=== PATIENT | male | born 1950 | race Caucasian/White ===

== ENCOUNTER 2025-03-12 09:42 | Inpatient (IN) | payer MEDICARE, BC, SELFPAY ==
[2025-03-12 09:06] LABS: Hematocrit 31.1 % (39.0-52.0); Hemoglobin 9.7 g/dL (13.0-18.0); Mean Corp Hgb Conc. 31.2 g/dL (33.0-37.0); Mean Corpuscular Volume 86.1 fL (80.0-94.0); Nucleated Red Blood Cells % 0 % (-); Platelet Count 255 10^3/uL (130-400); Red Cell Dist. Width 14.1 % (11.5-14.5)
--- NOTE | 2025-03-12 09:41 | HPS.HSE ---
Addendum entered and electronically signed by Gretel Youssef MD 03/12/25 13:39:
Reviewed labs, pt has Hgb 9.7, Cr 1.9, Pro BNP 13,000, d-dimer 4.07. Requested records for [facility] summary, BMP, CBC to compare. Given elevated Cr, can order V/Q. Attempted to call for more infor but she did not answer phone and no VM.
Original Note:
Family Physician
-
Family Physician: Sherrell Castillo
Chief Complaint
-
Orthopnea
History of Present Illness
75M with AF on eliquis, recent lower GIB 2/2 diverticulosis, CHF (EF 35-40%) 2/2 NICMP, DM2, chronic venous stasis dermatitis, presenting for elective CINTHYA. Procedure was aborted as pt became short of breath when he was laid flat on the stretcher.
Pt reports no SOB at rest. Denies any change in his chronic LE edema. Pt notes for years he has had orthopnea, sleeps in a chair with feet up every night, only gets 1-2 hrs of sleep at a time. He notes chronic AUSTIN 30-40 feet and with stairs, uses a
cane to walk and a stairlift at home. Denies chest pain, fever, chills, cough, cold sx, n/v/abd pain/d/c, dysuria or oliguria, ulcers or rash. He denies any hospitalizations for CHF exacerbation. States he had a TTE at [facility] a month ago. He
take bumex BID and reports compliance. He notes he adds salt to food but eats at home, denies fast food/takeout. He denies any recent new medications. Notes he has been holding his mounjaro and farxiga as directed for today's procedure.
Medical History
Past Medical History
Past Medical History: Reports NIDDM and Other
Additional Past Medical History:
AF
DM2
lymphedema
CHF
h/o PE per chart - pt denies knowing of blood clots
HTN
BLAYNE
PUD - h/o duodenal ulcer
diverticulosis
Past Surgical History: Reports Orthopedic (knee replacement)
Social History
Tobacco: Non-smoker
Alcohol: None
Drug: None
Personal:
Living: With Family
Family History
Family History: Cancer (M- bone cancer) and Other (F- old age)
Allergies / Home Medications
Allergies reflects when Allergies were last updated in [facility].
Home Medications with original date entered in [facility]
Allergy/Medication List:
Allergies
Allergy/AdvReac Type Severity Reaction Status Date / Time
No Known Allergies Allergy Unverified 03/12/25 09:32
Home Medications
Farxiga 10 mg PO DAILY 03/12/25
apixaban 5 mg tablet (Eliquis) mg BID 03/12/25
atorvastatin 20 mg tablet 20 mg PO DAILY 03/12/25
bumetanide 1 mg PO BID 03/12/25
bumetanide 1 mg tablet 1 mg PO BID 03/12/25
carvedilol 25 mg tablet mg 03/12/25
citalopram 20 mg tablet mg 03/12/25
clonidine HCl 0.1 mg tablet 0.1 mg PO TID 03/12/25
terazosin 10 mg tablet 10 mg PO BID 03/12/25
Review of Systems
-
A 12 point ROS was completed and negative except as noted: Yes
Physical Exam
Physical Exam
General: No Apparent Distress, Comfortable, Conversant and Other (sitting up)
HEENT: Moist mucous membranes, Good Dentition and PERRLA
Respiratory: Clear; No Wheezes, Rales or Rhonchi
Cardiac: S1/S2; No Murmur
GI: Soft, Non Tender, Non Distended and Normal Bowel Sounds
Musculoskeletal: Edema, Left Lower Extremity, Edema, Right Lower Extremity and Other (chronic venous stasis with pitting edema)
Skin: Warm and Dry
Neuro: Awake, Alert and AO x 3
Hematologic/Lymphatic: No Lymphadenopathy
Psych: Calm
Laboratory Results
-
03/12/25 08:40
Data Reviewed
-
Medical Tests (Nuc Med, Echo, EKG etc): Image Personally Visualized and interpreted (EKG)
Impression/Plan
-
IMPRESSION:
PLAN:
CHF/Orthopnea/AUSTIN:
Per history may be pt's baseline, unsure if exacerbation.
EKG
CXR
BMP, CBC, BNP, Trop, d-dimer
tele monitor
records from [facility] (recent echo)
lasix IV BID, monitor I/O, daily weights, limit sodium, compression hose
will likely resume eliquis at home dose (2.5mg instead of 5mg BID due to recent GIB)
SSI/accuchecks, hold home injectable/farxiga
cont citalopram
cont terazosin
d/w cardiology Dr. Rodríguez
Full code
DVT ppx eliquis
[2025-03-12 09:48] LABS: ALT (SGPT) 11 U/L (0-50); AST (SGOT) 19 U/L (17-59); Albumin 2.9 g/dl (3.5-5.0); Alkaline Phosphatase 97 U/L (38-126); Blood Urea Nitrogen 24 mg/dl (9-20); Calcium 7.9 mg/dl (8.4-10.2); Carbon Dioxide 33 mmol/L (22-30); Chloride 104 mmol/L (98-107); Glucose 105 mg/dl (70-99); Potassium 3.9 mmol/L (3.5-5.1); Sodium 139 mmol/L (135-145); Total Protein 6.7 g/dl (6.3-8.2); eGFR 36.33
[2025-03-12 10:15] VITALS: BMI 43.0
[2025-03-12 10:18] VITALS: BP 162/75
[2025-03-12 10:35] VITALS: BMI 43.0
--- NOTE | 2025-03-12 11:03 | PTCARENOTE ---
Received the patient from the labor/excavator in a stretcher. The patient is aaox3, his vital signs are stable. Afib is noted on the monitor. He ambulated to the standing scale and to his bed x1 assist with a rolling walker. He was dyspneic while
ambulating and also at rest sitting on the bed. He states that he is always SOB but its worse now. His lungs are clear but diminished in his bases. He has no complaints of pain. I oriented him to his room. His call love is within reach.
--- NOTE | 2025-03-12 11:12 | PTCARENOTE ---
The patient states that he takes Eliquis once a day since his GI bleed.
[2025-03-12 11:18] VITALS: BP 151/80
[2025-03-12] MEDS: CELEXA PO (11:21)
[2025-03-12] MEDS: LASIX 40 MG IV ×2 (11:21→15:59)
[2025-03-12] MEDS: COREG PO (11:21)
[2025-03-12] MEDS: FLUSH (NSS) 2 FLUSH IV ×2 (11:22→15:59)
[2025-03-12 12:04] LABS: D-Dimer 4.07 ug/mlFEU (0.00-0.50)
--- NOTE | 2025-03-12 13:38 | CON.CAR ---
Addendum entered and electronically signed by Don Santiago MD 03/12/25 16:01:
I saw and examined the patient independently, and I performed majority of MDM.
The AUDIO VISUAL ENGINEER's note was reviewed and I agree with the note with changes/additions below.
Comment: 75 yo male with PMH of permanent A fib, chronic HFrEF, EF 35-40%, CKD3b presented today for CINTHYA as part of Watchman evaluation. He was SOB with edema, and we were unable to proceed with CINTHYA due to acute on chronic HF. Exam with irregular
rhythm, 2+ LE edema. Cr 1.9.
Acute on chronic HFrEF. Severe, requiring hospitalization and IV lasix with close monitoring of labs. Continue lasix 40mg IV bid.
Chronic anticoagulation. We are looking into why he is on low dose eliquis. He is undergoing Watchman evaluation.
Original Note:
Consultation
Consultation Request
Date/Time Consultation Requested: 03/12/25 1321
Date/Time Consultation Performed: 03/12/25 1342
Requesting Provider: Dr. Youssef
Performing Provider: Vickie CLEMENTS for Dr. Santiago
Reason for Consultation: CHF
Medical History
-
Chief Complaint: came in for CINTHYA, but wheezing/SOB noted so cancelled
History of Present Illness:
75 y/o male with AFIB on low dose Eliquis (due to GIB bleed), moderate , HFrEF EF 35-40%/NICM, CKD (creatinine around 2), cirrhosis, diabetes, hypertension, severe obesity, and hyperlipidemia. His primary director speech is Dr. Jalloh, but he has seen
Dr. Vilchis for consideration for NIGEL occlusion due to GIB as noted. Today, he was scheduled for CINTHYA to look for NIGEL thrombus/pre-watchman assessment, but procedure cancelled due to respiratory status. He has SOB and wheezing and was felt to be
volume overloaded and so is admitted for management of gpihf-uf-kbqyqfv HFrEF. He reports to me that he has chronic AUSTIN, which has been worse over the past two weeks. He does report orthopnea. He thinks his weight is up, but does not check at home.
He has chronic LE edema (b/l), but thinks it may be worse. At the time of my assessment, he has mildly increased WOB, but is in no distress. He has some wheezing and diminished lung sounds. He denies any fever or chills.
Past Medical History
Past Medical History: Arrhythmias, CHF, HTN, Hypercholesterolemia, NIDDM, Renal Failure and Valvular Disease
Social History
Tobacco: Non-Smoker
Family History
Family History: Reviewed & Not Pertinent
Allergies / Home Medications
Allergy/AdvReac Type Severity Reaction Status Date / Time
No Known Allergies Allergy Unverified 03/12/25 09:32
�Medication �Instructions �Recorded �Confirmed �Type
Farxiga 10 mg PO DAILY 03/12/25 03/12/25 History
apixaban 5 mg tablet (Eliquis) 5 mg Daily 03/12/25 03/12/25 History
atorvastatin 20 mg tablet 20 mg PO DAILY 03/12/25 03/12/25 History
bumetanide 1 mg PO BID 03/12/25 03/12/25 History
bumetanide 1 mg tablet 1 mg PO BID 03/12/25 03/12/25 History
carvedilol 25 mg tablet 25 mg BID 03/12/25 03/12/25 History
citalopram 20 mg tablet 20 mg DAILY 03/12/25 03/12/25 History
clonidine HCl 0.1 mg tablet 0.1 mg PO TID 03/12/25 03/12/25 History
multivitamin 1 tab PO DAILY 03/12/25 03/12/25 History
terazosin 10 mg tablet 10 mg PO BID 03/12/25 03/12/25 History
tirzepatide 15 mg/0.5 mL 15 mg SC QWEEK 03/12/25 03/12/25 History
subcutaneous pen injector
(Lynne)
Review of Systems
-
History Source: Patient
All other systems: Negative unless noted
Constitutional: Weight Gain
Respiratory: Trouble Breathing
Physical Exam
Vital Signs
Temp Pulse Resp BP Pulse Ox
98.5 F 79 20 151/80 96
03/12/25 11:24 03/12/25 12:00 03/12/25 11:24 03/12/25 11:18 03/12/25 11:24
Lab Results
03/12/25 08:40
03/12/25 08:40
Ask-R-Ukerjrqicuc Pept 82115 pg/ml 03/12/25 08:40
Physical Exam
General: No Apparent Distress
Respiratory: Wheezes and Other (coarse lung sounds to bases, on O2 by NC)
Cardiac: Irregular Rhythm and Murmur (II/ systolic)
Musculoskeletal: Edema (moderate BLE edema, some chronic)
Neuro: AO x 3
Psych: Calm
Impression / Plan
-
SOB:
-CHF as below. Patient also with abnormal CXR and elevated D-dimer- w/u per primary who is planned for VQ scan for the latter.
Mgwqp-xz-iuvstrr HFrEF/NICM:
-Echo 12/27/24: Moderate left ventricular dysfunction (EF 35-40%) with normal right ventricular function. Indeterminate diastolic filling pattern due to atrial fibrillation. Minimal mitral stenosis with trace mitral regurgitation. Moderate aortic
stenosis with no aortic insufficiency. Mild pulmonary hypertension. Moderate to severe biatrial enlargement with left ventricular enlargement and mild concentric hypertrophy.
-agree with IV diuresis, which requires intensive monitoring
-CHF education and diet
-on Farxiga, Coreg. Likely not on other GDMT due to renal function.
Permanent AFIB:
-on incorrect lower dose of Eliquis due to hx bleeding issues (GIB)- we will continue for now and plan is for primary cardiologists and code and test clerk to dicuss plan for this
-continue coreg and monitor telemetry
-can consider CINTHYA again when respiratory status improved
Moderate :
-continue to monitor with primary director speech
CKD:
-monitor with diuresis
Severe Obesity:
-would benefit from weight loss in long run
Data Reviewed
-
EKG: Tracing Personally Visualized and interpreted (AFIB PVC's 74 BPM)
Radiology: Report Reviewed by me (CXR: Mild bibasilar atelectasis and/or pneumonia.)
Medical Tests (Nuc Med, Echo etc): Report Reviewed by me (echo as noted)
Labs: Labs Reviewed by me
[2025-03-12 15:10] VITALS: BP 155/89
--- NOTE | 2025-03-12 15:29 | CM ---
Reviewed chart. Met with Mr. Wakefield to review discharge plans. He states prior to admission he resides with his spouse in a three story home. He states he has a stair glide to get to the main living area. He states he has another stair glide to get
to his bedroom/full bathroom. He states he has a powder room on the first floor. He states prior to admission he ambulates in the home with a single point cane. He states he uses a single point cane or walker in the community. He states he is
independent with adls. He states he has two stair glide, single point cane, walker and rollator at home. He states he has had VNA in the distant past and was in a SNF/Rehab. in [place] a long time ago. He states he has a prescription plan. Will
need to see his current functional level to see if he will have any skilled care needs. Medical work-yup in progress. The discharge plan is to return home with his spouse and VNA Services if indicated and if he is agreeable.
[2025-03-12] MEDS: MIRALAX 17 GRAMS PO (16:04)
[2025-03-12] MEDS: SENOKOT-S 1 TABLET PO (16:04)
--- NOTE | 2025-03-12 16:17 | PTCARENOTE ---
The patient was having difficulty having a BM. I gave him Miralax and Senokot as ordered.
--- NOTE | 2025-03-12 18:37 | PTCARENOTE ---
US of LE is negative for DVTs. Knee high SCDs placed on the patient. Education provided.
[2025-03-12 18:55] VITALS: BP 156/83
[2025-03-12 19:52] VITALS: BMI 43.0
[2025-03-12] MEDS: COREG 25 MG PO (19:54)
[2025-03-12] MEDS: HYTRIN 10 MG PO (19:54)
[2025-03-12 19:56] VITALS: BP 164/88
[2025-03-12] MEDS: DESENEX/MITRAZOL/ZEASORB 1 APPLIC TOPICAL (19:56)
[2025-03-12] MEDS: ELIQUIS 2.5 MG PO (19:56)
[2025-03-12 22:37] VITALS: BP 153/92
--- NOTE | 2025-03-12 23:05 | PTCARENOTE ---
Received pt at change of shift resting in bed. Afib on tele-HR 60's-70's. Tele monitor alarmed VT, pt asymptomatic. Dr. Tran made aware, informed RN it is not VT--tele strip placed in paper chart. pt denies any CP at this time. pt AUSTIN and rest @
x's, sating 95% on RA. Encouraged pt to call RN for assistance ambulating and w/ any questions/concerns. Call love within reach.
[2025-03-13] VITALS (7 sets, daily range): BP systolic 138–168; BP diastolic 79–92; BMI 41.6
[2025-03-13 03:07] LABS: Hematocrit 31.3 % (39.0-52.0); Hemoglobin 9.7 g/dL (13.0-18.0); Mean Corp Hgb Conc. 31.0 g/dL (33.0-37.0); Mean Corpuscular Volume 86.0 fL (80.0-94.0); Platelet Count 246 10^3/uL (130-400); Red Cell Dist. Width 13.9 % (11.5-14.5)
[2025-03-13 03:32] LABS: Blood Urea Nitrogen 25 mg/dl (9-20); Calcium 7.9 mg/dl (8.4-10.2); Carbon Dioxide 32 mmol/L (22-30); Chloride 104 mmol/L (98-107); Estimated Creatinine Clearance 45 ml/min; Glucose 100 mg/dl (70-99); Potassium 3.9 mmol/L (3.5-5.1); Sodium 141 mmol/L (135-145); eGFR 34.16
[2025-03-13] MEDS: LIPITOR 20 MG PO (08:24)
[2025-03-13] MEDS: COREG 25 MG PO ×2 (08:24→19:54)
[2025-03-13] MEDS: CELEXA 20 MG PO (08:24)
[2025-03-13] MEDS: HYTRIN 10 MG PO ×2 (08:25→19:58)
[2025-03-13] MEDS: ELIQUIS 2.5 MG PO (08:26)
--- NOTE | 2025-03-13 09:01 | W.PN.HOSP.TC ---
Today's Communication/Plan
-
see A/P
Assessment / Plan
Assessment / Plan
HPI: 75M with AF on eliquis, recent lower GIB 2/2 diverticulosis, CHF (EF 35-40%) 2/2 NICMP, DM2, chronic venous stasis dermatitis, here for elective CINTHYA.
Procedure was aborted as pt became short of breath when he was laid flat on the stretcher. Pt reports no SOB at rest. Denies any change in his chronic LE edema. Pt notes for years he has had orthopnea, sleeps in a chair with feet up every night,
only gets 1-2 hrs of sleep at a time. He notes chronic AUSTIN 30-40 feet and with stairs, uses a cane to walk and a stairlift at home.
He denies any hospitalizations for CHF exacerbation. States he had a TTE at [facility] a month ago. He take bumex BID and reports compliance. He notes he adds salt to food but eats at home, denies fast food/takeout. He denies any recent new
medications. Notes he has been holding his mounjaro and farxiga as directed for the CINTHYA procedure.
A/P:
# Orthopnea/AUSTIN POA likely 2/2 Acute on chronic systolic CHF with
Admission CXR showed mild bibasilar atelectasis and/or pneumonia.
BNP 51862
tele monitor
Follow records from [facility] (recent echo)
Cont IV lasix 40 mg BID,
monitor I/O, daily weights, limit sodium, compression hose
Card on board
# permanent A fib
rate controlled
Cont reduced home dose Eliquis at 2.5 mg in setting of recent GIB
# d-dimer high
US neg for DVT
follow VQ scan
# NIDDM
Cont SSI/accuchecks
hold home injectable/farxiga
# likely CKD stage 3
Monitor SCr
Full code
DVT ppx Eliquis
DW RN
Anticipated Discharge: > 48 hours
Subjective/Interval History
-
Date of Service: March 13, 2025
Objective Data
-
Labs:
Laboratory Results
03/13/25
02:47
WBC 5.3
Hgb 9.7 L
Hct 31.3 L
Plt Count 246
Sodium 141
Potassium 3.9
Chloride 104
Carbon Dioxide 32 H
BUN 25 H
Creatinine 2.0 H
Glucose 100 H
Calcium 7.9 L
Vital Signs:
Vital Signs
Temp Pulse Resp BP Pulse Ox
36.3 C 77 20 138/79 94
03/13/25 08:04 03/13/25 06:00 03/13/25 08:04 03/13/25 02:40 03/13/25 08:04
I&O
03/12/25 03/13/25 03/14/25
06:59 06:59 06:59
Intake Total 480 / 480
Output Total 1750 / 1750
Balance -1270 / -1270
Review of Systems
-
History Source: Patient
All other systems: Reviewed and negative
Physical Exam
-
General: Well Developed, Well Nourished, No Apparent Distress, Comfortable, Conversant and Morbidly Obese
HEENT: Normocephalic, Atraumatic, Nose Appears Normal and Ears Appear Normal; Negative Oxygen
Respiratory: Clear to Auscultation and Non Labored Respirations; Negative Accessory Resp Muscle Use
Cardiac: S1/S2 and Irregular Rhythm
GI: Soft, Nontender, Nondistended and Normal Bowel Sounds
Musculoskeletal: Edema, Right Lower Extrem and Edema, Left Lower Extrem
Skin: Warm and Dry
Neuro: Awake, Alert, Oriented, AO x 3 and Nonfocal/Grossly Intact
Psych: Calm and Intact Judgement/Insight
Data Reviewed
-
Diagnostic Radiology: Report Reviewed by me
Labs: Labs Reviewed by me
[2025-03-13] MEDS: LASIX 40 MG IV ×2 (09:31→15:47)
[2025-03-13] MEDS: DESENEX/MITRAZOL/ZEASORB 1 APPLIC TOPICAL ×2 (09:37→19:57)
--- NOTE | 2025-03-13 11:10 | PTCARENOTE ---
Pt has orthopnea, unable to lay flat for lung scan, Dr Elliott aware. Pt placed on O2 at 2L/min to see if he can tolerate laying flat on O2 and he was able. [facility] dept aware and will call for Pt when they are able to do test.
--- NOTE | 2025-03-13 11:42 | CM ---
Reviewed chart. Met with Mr. Wakefield to review discharge plans. He states his is feeling better. We reviewed VNA Services with him. At this time he is declining VNA Services. Prior to admission he resides with his spouse in a three story home. He
has a stair glide to get to the main living area. He has another stair glide to get to his bedroom/full bathroom. He has a powder room on the first floor. Prior to admission he ambulates in the home with a single point cane. He uses a single
point cane or walker in the community. He is independent with adls. He has two stair glide, single point cane, walker and rollator at home. He has had VNA in the distant past and was in a SNF/Rehab. in [place] a long time ago. He states he has a
prescription plan. Will need to see his current functional level to see if he will have any skilled care needs. Medical work-yup in progress. The discharge plan is to return home with his spouse and VNA Services if indicated and if he is
agreeable.
Initialized on 03/12/25 15:29 - END OF NOTE
--- NOTE | 2025-03-13 13:24 | W.PN.CD ---
Today's Communication / Plan
-
lasix
CINTHYA possible tomorrow
Impression / Plan
-
SOB:
-CHF as below. Patient also with abnormal CXR and elevated D-dimer- w/u per primary who is planned for VQ scan for the latter.
Bbxro-tu-eterneu HFrEF/NICM:
-Echo 12/27/24: Moderate left ventricular dysfunction (EF 35-40%) with normal right ventricular function. Indeterminate diastolic filling pattern due to atrial fibrillation. Minimal mitral stenosis with trace mitral regurgitation. Moderate aortic
stenosis with no aortic insufficiency. Mild pulmonary hypertension. Moderate to severe biatrial enlargement with left ventricular enlargement and mild concentric hypertrophy.
-agree with IV diuresis, which requires intensive monitoring, cont. IV lasix BID
-CHF education and diet
-on Farxiga, Coreg. Likely not on other GDMT due to renal function.
Permanent AFIB:
-on incorrect lower dose of Eliquis due to hx bleeding issues (GIB)- will increase to 5 BID, intermediate manager goal is Watchman to avoid further AC in future
-continue coreg and monitor telemetry
-can consider CINTHYA again when respiratory status improved, hopefully tomorrow (will make NPO@MN)
Moderate :
-continue to monitor with primary miller apprentice
CKD:
-monitor with diuresis
Severe Obesity:
-would benefit from weight loss in long run
Tele: Afib, one 10s run of Afib w/ RVR and abberancy vs. NSVT
Physical Exam
Vital Signs/Labs
Vital Signs
Temp Pulse Resp BP Pulse Ox
36.8 C 68 17 160/79 93
03/13/25 11:09 03/13/25 11:10 03/13/25 11:09 03/13/25 11:10 03/13/25 11:09
03/12/25 03/13/25 03/14/25
06:59 06:59 06:59
Actual Weight 131.5 kg
03/13/25 02:47
03/13/25 02:47
03/12/25
08:40
Tlf-I-Wwkmwykaizu Pept 42039
Physical Exam
Constitutional: Comfortable
Cardiovascular: Rhythm/rate is irregular
Respiratory: Respiratory effort normal
Neuro/Psych: AO x 3
pitting 2+ ILIA
Data Reviewed
-
Date of Service: March 13, 2025
Medical Decision Making: Reviewed Test Results
EKG: Tracing Personally Visualized and interpreted
Echo: Tracing Personally Visualized and interpreted
Labs: Labs Reviewed by me
[2025-03-13] MEDS: ELIQUIS 5 MG PO (19:54)
--- NOTE | 2025-03-13 23:14 | PTCARENOTE ---
Received pt at change of shift sitting on side of bed. afib w/ PVC's on tele, HR in the 70's. pt denies any CP at this time. pt AUSTIN and orthopneic, sating 97% on RA. SCD's applied to pt and encouraged pt to call RN for assistance ambulating. pt made
aware of NPO status after midnight, pt verbalizes understanding. Call love within reach.
[2025-03-14 03:26] VITALS: BP 166/92
[2025-03-14 03:40] VITALS: BMI 43.1
[2025-03-14 04:06] VITALS: BP 158/96
[2025-03-14 04:09] LABS: Hematocrit 32.7 % (39.0-52.0); Hemoglobin 9.8 g/dL (13.0-18.0); Mean Corp Hgb Conc. 30.0 g/dL (33.0-37.0); Mean Corpuscular Volume 88.4 fL (80.0-94.0); Platelet Count 250 10^3/uL (130-400); Red Cell Dist. Width 14.0 % (11.5-14.5)
[2025-03-14 04:32] LABS: Blood Urea Nitrogen 25 mg/dl (9-20); Calcium 8.1 mg/dl (8.4-10.2); Carbon Dioxide 31 mmol/L (22-30); Chloride 103 mmol/L (98-107); Estimated Creatinine Clearance 44 ml/min; Glucose 100 mg/dl (70-99); Magnesium 2.1 mg/dl (1.6-2.3); Potassium 3.6 mmol/L (3.5-5.1); Sodium 138 mmol/L (135-145); eGFR 34.16
--- NOTE | 2025-03-14 06:37 | PTCARENOTE ---
pt weight up 5kg from yesterday AM. Weighed pt on 2 different scales, wearing same clothing as yesterday. pt voided prior to taking weight. pt verbalizing feeling much better than yesterday regarding breathing and AUSTIN.
[2025-03-14 07:50] VITALS: BP 163/89
--- NOTE | 2025-03-14 08:27 | W.PN.HOSP.TC ---
Today's Communication/Plan
-
see A/P
Assessment / Plan
Assessment / Plan
HPI: 75M with AF on eliquis, recent lower GIB 2/2 diverticulosis, CHF (EF 35-40%) 2/2 NICMP, DM2, chronic venous stasis dermatitis, here for elective CINTHYA.
Procedure was aborted as pt became short of breath when he was laid flat on the stretcher. Pt reports no SOB at rest. Denies any change in his chronic LE edema. Pt notes for years he has had orthopnea, sleeps in a chair with feet up every night,
only gets 1-2 hrs of sleep at a time. He notes chronic AUSTIN 30-40 feet and with stairs, uses a cane to walk and a stairlift at home.
He denies any hospitalizations for CHF exacerbation. States he had a TTE at [facility] a month ago. He take bumex BID and reports compliance. He notes he adds salt to food but eats at home, denies fast food/takeout. He denies any recent new
medications. Notes he has been holding his mounjaro and farxiga as directed for the CINTHYA procedure.
A/P:
# Orthopnea/AUSTIN POA likely 2/2 Acute on chronic systolic CHF with
Admission CXR showed mild bibasilar atelectasis and/or pneumonia.
BNP 17069
tele monitor
Echo 12/27/24: EF 35-40%. Indeterminate diastolic filling pattern due to atrial fibrillation. Moderate aortic stenosis with no aortic insufficiency.
Cont IV lasix 40 mg BID,
monitor I/O, daily weights, limit sodium, compression therapy
Card on board
# permanent A fib
rate controlled
Cont reduced home dose Eliquis at 2.5 mg in setting of recent GIB
plan for CINTHYA today
# d-dimer high
US neg for DVT
unable to obtain VQ scan as pt unable to lie flat after several attempts- hence study cancelled
At this point, since pt is on Eliquis, I do not feel VQ scan is warranted anymore
# NIDDM
Cont SSI/accuchecks
hold home injectable/farxiga
# likely CKD stage 3
Monitor SCr
Full code
DVT ppx Eliquis
DW RN
Anticipated Discharge: 24 - 48 hours
Subjective/Interval History
-
Date of Service: March 14, 2025
Objective Data
-
Labs:
Laboratory Results
03/14/25
03:39
WBC 5.8
Hgb 9.8 L
Hct 32.7 L
Plt Count 250
Sodium 138
Potassium 3.6
Chloride 103
Carbon Dioxide 31 H
BUN 25 H
Creatinine 2.0 H
Glucose 100 H
Calcium 8.1 L
Vital Signs:
Vital Signs
Temp Pulse Resp BP Pulse Ox
36.5 C 63 20 158/96 94
03/14/25 07:53 03/14/25 05:00 03/14/25 07:53 03/14/25 04:06 03/14/25 07:53
I&O
03/13/25 03/14/25 03/15/25
06:59 06:59 06:59
Intake Total 480 / 480 1240 / 1240
Output Total 1750 / 1750 2275 / 2275
Balance -1270 / -1270 -1035 / -1035
Review of Systems
-
History Source: Patient
All other systems: Reviewed and negative
Physical Exam
-
General: Well Developed, Well Nourished, No Apparent Distress, Comfortable, Conversant and Morbidly Obese
HEENT: Normocephalic, Atraumatic, Nose Appears Normal and Ears Appear Normal; Negative Oxygen
Respiratory: Clear to Auscultation and Non Labored Respirations; Negative Accessory Resp Muscle Use
Cardiac: S1/S2 and Irregular Rhythm
GI: Soft, Nontender, Nondistended and Normal Bowel Sounds
Musculoskeletal: Edema, Right Lower Extrem and Edema, Left Lower Extrem
Skin: Warm and Dry
Neuro: Awake, Alert, Oriented, AO x 3 and Nonfocal/Grossly Intact
Psych: Calm and Intact Judgement/Insight
Data Reviewed
-
Diagnostic Radiology: Report Reviewed by me
Labs: Labs Reviewed by me
[2025-03-14] MEDS: ELIQUIS 5 MG PO (09:05)
[2025-03-14] MEDS: CELEXA 20 MG PO (09:05)
[2025-03-14] MEDS: KCL 270 MEQ IV (09:05)
[2025-03-14] MEDS: LIPITOR 20 MG PO (09:05)
[2025-03-14] MEDS: COREG 25 MG PO (09:05)
[2025-03-14] MEDS: LASIX 40 MG IV (09:05)
[2025-03-14] MEDS: DESENEX/MITRAZOL/ZEASORB 1 APPLIC TOPICAL (09:08)
[2025-03-14] MEDS: HYTRIN 10 MG PO (09:08)
--- NOTE | 2025-03-14 09:35 | CM ---
Reviewed chart. Met with Mr. Wakefield to review discharge plans. He states he is feeling better. We reviewed VNA Services again and he is still declining at this time. Prior to admission he resides with his spouse in a three story home. He has a
stair glide to get to the main living area. He has another stair glide to get to his bedroom/full bathroom. He has a powder room on the first floor. Prior to admission he ambulates in the home with a single point cane. He uses a single point cane
or walker in the community. He is independent with adls. He has two stair glide, single point cane, walker and rollator at home. He has had VNA in the distant past and was in a SNF/Rehab. in [place] a long time ago. He states he has a prescription
plan. Will need to see his current functional level to see if he will have any skilled care needs. Medical work-yup in progress. The discharge plan is to return home with his spouse and VNA Services if indicated and if he is agreeable.
--- NOTE | 2025-03-14 11:16 | PTCARENOTE ---
pt afib on the monitor, hr in the 70s, vss. pt offers no complaints at this time. pt educated on plan of care. pt verbalized understanding, call love within reach.
report given to labor delivery rn.
[2025-03-14 12:39] VITALS: BP 168/91
--- NOTE | 2025-03-14 13:23 | W.PN.CD ---
Addendum entered and electronically signed by Chino Vilchis MD 03/14/25 13:33:
Increase bumex to 2 BID
Original Note:
Today's Communication / Plan
-
stable for discharge with outpatient cardiology follow up
will reach out to patient re: watchman planning
cont. apixaban 5 BID
Impression / Plan
-
[id number] HFrEF/NICM:
-Echo 12/27/24: Moderate left ventricular dysfunction (EF 35-40%) with normal right ventricular function. Indeterminate diastolic filling pattern due to atrial fibrillation. Minimal mitral stenosis with trace mitral regurgitation. Moderate aortic
stenosis with no aortic insufficiency. Mild pulmonary hypertension. Moderate to severe biatrial enlargement with left ventricular enlargement and mild concentric hypertrophy.
-s/p IV diuresis x2 days with improvement in pulmonary edema; weight unchanged but negative 1L two days in a row
-CHF education and diet
-on Farxiga, Coreg. Likely not on other GDMT due to renal function.
-will continue bumex 1 mg PO BID; he knows to closely watch his daily weights and reach out to Dr. Jalloh if has weight gain
Permanent AFIB:
-on incorrect lower dose of Eliquis due to hx bleeding issues (GIB)- will increase to 5 BID, salvage determiner goal is Watchman to avoid further AC in future
-continue coreg and monitor telemetry
-CINTHYA today with no clot in appendage, will schedule for Watchman
Moderate :
-continue to monitor with primary occupational therapy assist
CKD:
-monitor with diuresis
Severe Obesity:
-would benefit from weight loss in long run
Tele: afib, occasional PVCs
Physical Exam
Vital Signs/Labs
Vital Signs
Temp Pulse Resp BP Pulse Ox
36.3 C 68 20 163/89 94
03/14/25 12:41 03/14/25 09:05 03/14/25 12:41 03/14/25 09:05 03/14/25 12:41
03/13/25 03/14/25 03/15/25
06:59 06:59 06:59
Actual Weight 131.5 kg 136.1 kg
03/14/25 03:39
03/14/25 03:39
Magnesium 2.1 mg/dl (1.6-2.3) 03/14/25 03:39
03/12/25
08:40
Ohh-S-Qkbazizotox Pept 82476
Physical Exam
Constitutional: Comfortable
Cardiovascular: Rhythm/rate is irregular
Respiratory: Respiratory effort normal
Neuro/Psych: AO x 3
Data Reviewed
-
Date of Service: March 14, 2025
Medical Decision Making: Reviewed Test Results
Labs: Labs Reviewed by me
[2025-03-14] MEDS: KCL 40 MEQ PO (13:39)
--- NOTE | 2025-03-14 14:42 | W.DCSUMMARY ---
Discharge Summary
Discharge Data
Date of Admission: 03/12/25
Date of Discharge: 03/14/25
Total time spent discharging patient (in min): 40
-
Pending Results: No
Hospital Course
Principal Diagnosis:
Acute on chronic heart failure with reduced ejection fraction
Permanent A-fib status post CINTHYA/cardioversion this admission
Chronic Diagnoses:�
Recent GI bleed due to diverticulosis
NIDDM
Likely CKD stage 3
Consultations:�
Cardiology
Procedures:�
CINTHYA and cardioversion 03/14/2025
Clinical course:�
This is a 75-year-old male with past medical history as stated above, who presented with elective CINTHYA but the procedure was aborted due to him becoming short of breath when trying to lie flat on the stretcher.
He was admitted for acute on chronic heart failure.
Problem 1:
Orthopnea/[place]IN due to acute on chronic systolic [place] [address] [place] admission.
His echo from 12/27/24 showed: EF 35-40%. Indeterminate diastolic filling pattern due to atrial fibrillation. Moderate aortic stenosis with no aortic insufficiency.
He received IV lasix 40 mg BID while in the hospital and can continue with prior to admission Bumex 2 mg twice daily.
Problem 2:
Permanent A fibrillation, rate controlled.
He underwent CINTHYA and cardioversion on 03/14/2025.
He can continue with Eliquis at 5 mg twice daily going forward.
As for the rest of his medical problems, they were stable during his hospital stay.
Discharge Plan
-
Patient Disposition: Home (Routine Discharge)
Discharge Diagnosis/Procedures: Orthopnea due to acute on chronic systolic heart failure;
permanent A fib status post CINTHYA and cardioversion this admission 03/14/2025
Condition: Fair
Diet: As tolerated, Low Fat, Low Cholesterol and Low Sodium
Activity: As tolerated
Driving Restrictions: Not until seen by your Dr
Blood Work: BMP in 1 week, result to PCP/[facility]
Instructions: *CBC Heart Failure Instructions
Referrals:
Sherrell Castillo CRNP [Family Provider] - in less than 1 week
Additional Discharge Medication Instructions: continue Bumex at 2 mg twice daily
Prescriptions:
New
(DME) BMP
See Rx Instructions .Route .MEDSUPPLY Qty: 1 0RF
Rx Instructions:
03/17/2025 to 03/21/2025, result to PCP
acute on chronic heart systolic failure
Eliquis 5 mg tablet
5 mg PO BID Qty: 60 0RF
Continued
clonidine HCl 0.1 mg Tablet
0.1 mg PO TID
atorvastatin 20 mg Tablet
20 mg PO DAILY
terazosin 10 mg Tablet
10 mg PO BID
citalopram 20 mg Tablet
20 mg DAILY
bumetanide 1 mg Tablet
1 mg PO BID
Farxiga
10 mg PO DAILY
carvedilol 25 mg Tablet
25 mg BID
bumetanide
1 mg PO BID
multivitamin Tablet
1 tab PO DAILY
Mounjaro 15 mg/0.5 mL Pen Injector
15 mg SC QWEEK
Discontinued
Eliquis 5 mg Tablet
5 mg Daily
Discharge Orders:
Discharge Patient (As Directed); Ordered 03/14/25
Ordered By: Sallie Elliott
Care Plan Goals
Care Plan Goals:
Problem: Readiness for enhanced knowledge related to diagnosis and treatment plan
Goal: Understand your diagnosis and treatment plan needs, including medications if applicable.
Instructions: Know your diagnosis, underlying causes and treatment plan options, including medications if applicable. Consult with your health care team to learn about your diagnosis and treatment plan, including medications if applicable.
Discharge Date and Time
Print Language: LIBYAN
--- NOTE | 2025-03-14 15:17 | PTCARENOTE ---
d/c instructions read to pt and pt verbalized understanding. at bedside verbalized understanding. iv and tele removed. pt left via wheelchair with RN. pt adamant about driving self home despite RN advising against it due to procedure today. pt
left with belongings from room and d/c instructions.
== END 2025-03-14 15:19 | disposition home or self-care (01) | DRG 291 ==
LOC: IVU 09:42
PROVIDERS: Internal Medicine Cardiovascular Disease; ADMITTING PHYSICIAN Internal Medicine; ATTENDING PHYSICIAN Internal Medicine; FAMILY PHYSICIAN Nurse Practitioner Adult Health; OTHER PHYSICIAN Internal Medicine
DX: I13.0 Hypertensive heart and chronic kidney disease with heart failure and stage 1 through stage 4 chronic kidney disease, or unspecified chronic kidney disease (principal); I50.23 Acute on chronic systolic (congestive) heart failure; I48.21 Permanent atrial fibrillation; Z68.41 Body mass index [BMI] 40.0-44.9, adult; J98.11 Atelectasis; I42.8 Other cardiomyopathies; Z79.01 Long term (current) use of anticoagulants; I27.20 Pulmonary hypertension, unspecified; N18.30 Chronic kidney disease, stage 3 unspecified; E66.01 Morbid (severe) obesity due to excess calories; E11.22 Type 2 diabetes mellitus with diabetic chronic kidney disease; G47.33 Obstructive sleep apnea (adult) (pediatric); I35.0 Nonrheumatic aortic (valve) stenosis; K57.30 Diverticulosis of large intestine without perforation or abscess without bleeding; I89.0 Lymphedema, not elsewhere classified; K74.60 Unspecified cirrhosis of liver; Z79.84 Long term (current) use of oral hypoglycemic drugs; Z79.899 Other long term (current) drug therapy; Z86.711 Personal history of pulmonary embolism; Z87.11 Personal history of peptic ulcer disease
CPT/HCPCS: 71045; 80048; 80053; 83735; 83880; 84100; 84443; 85025; 85027; 85379; 93005; 93312; 93320; 93325; 93970

== ENCOUNTER 2025-04-01 05:58 | Inpatient (IN) | payer MEDICARE, BC, SELFPAY ==
[2025-04-01] VITALS (12 sets, daily range): BP systolic 112–150; BP diastolic 63–79; BMI 43.9
[2025-04-01 06:59] LABS: Glucose - Point of Care 103 mg/dl (70-99)
[2025-04-01 07:15] LABS: INR 1.48; PT 18.2 Sec (11.4-14.6)
[2025-04-01] MEDS: NSS 500 IV (07:19)
[2025-04-01 09:06] LABS: ACT-LR - POC 322 Seconds (116-155)
[2025-04-01 09:08] LABS: Glucose - Point of Care 96 mg/dl (70-99)
[2025-04-01 09:21] LABS: ACT-LR - POC 303 Seconds (116-155)
--- NOTE | 2025-04-01 09:33 | WATCHMAN.MD ---
Watchman Implant
-
Watchman NIGEL occlusion device implantation:
Mr. Wakefield is a 75 yrs old gentleman with recurrent GI bleeds and advised to stop anticoagulation therapy is here for Watchman implantation.
Date of Procedure:
04/01/25
Indications:
Recurrent bleeds with anticoagulation therapy for stroke prevention
Pre-Operative Diagnosis:
Atrial fibrillation with recurrent bleeds
Post-Operative Diagnosis:
Atrial fibrillation with recurrent bleeds
Procedure Performed:
Left atrial appendage occlusion with Watchman implantation (27 mm Watchman FLX Pro left atrial appendage closure device)
Performing Physicians:
CINTHYA: Ariadne Murphy MD.
Transseptal diecast machine operator: Jake Yu MD.
Implanter: Chino Vilchis MD
Anesthesia:
See anesthesia records
Detailed Description of the Procedure:
Written informed consent was obtained from the patient after a full explanation of the risks and benefits of the procedure including the risks of sedation and anesthesia.
The patient was brought to the electrophysiology laboratory in stable condition in fasting state. Continuous electrocardiographic and hemodynamic monitoring was initiated.
The initial rhythm was atrial fibrillation.
The procedure site was meticulously prepared with surgical scrub and allowed to dry with no pooling. Sterile draping was applied to cover the procedure site. The image intensifier was draped with sterile bag and positioned over the patient. After
infusion of local anesthetic, vascular access was obtained under ultrasound guidance and sheaths were placed over guide wire as detailed below.
Sheath and Catheter Placement:
In the right femoral vein, an 8-English sheath was placed for Watchman placement procedure.
Sheaths:
Watchman delivery sheath upgraded from 8Fr sheath.
Catheters:
Watchman catheter
Trans-septal Puncture:
Heparin was initiated and infused to maintain appropriate ACT.
A VersaCross RF pigtail guidewire was advanced through the 8-English sheath in the right femoral vein into the superior vena cava under fluoroscopic, CINTHYA guidance. The 8Fr was upgraded the Watchman sheath and was advanced into the superior vena cava
over the guide wire. A transseptal VersaCross RF pigtail was utilized to perform the trans-septal puncture. The apparatus was withdrawn until it was in contact with the fossa ovalis. The position was adjusted based on fluoroscopy and ultrasound
images from CINTHYA. Under fluoroscopic, hemodynamic and CINTHYA ultrasound guidance, left atrium was cannulated by applying the radiofrequency energy. The right atrial and left atrial pressure was monitored. A guide wire was placed and was advanced into
the left superior pulmonary vein. Both the sheath and the dilator was advanced into the left atrium. The dilator was withdrawn. Blood was aspirated from the sheath and arterial blood confirmed. The sheath was flushed. Saline injection noted into the
left atrium on CINTHYA. The LA pressure was recorded. The saline injection was noted in the LA on the CINTHYA. A curved pig tail was advanced over the guide wire into the left atrium and the wire was removed.
Left atrial appendage atriography:
The pigtail was advanced into the NIGEL and was confirmed on fluoroscopy and CINTHYA. The contrast was injected and the NIGEL shape was recorded in LINCOLN /Caudal view (16/19 degrees). The size of the NIGEL was again checked and confirmed reviewing the CINTHYA and
the fluoroscopy along with previously obtained CINTHYA images.
Watchman Deployment:
The Watchman delivery sheath was advanced into the NIGEL over the pigtail till the right marker was at the location of the orifice line marked on the screen. The pigtail was removed and the Watchman delivery system was advanced through the sheath into
the NIGEL till it was aligned with the outer sheath marker inside the NIGEL. The watchman sheath was clicked with the outer sheath. Once acceptable location achieved, the outer sheath was pulled back keeping the device steady at the NIGEL location till a
ball of the device was formed under fluoroscopic guidance. The whole system was advanced further into the NIGEL till adequate depth is achieved into the NIGEL. The NIGEL occluder was deployed and expanded adequately anchoring to the NIGEL. The device was
kept anchored with stable pressure to that location for 10 seconds.
The watchman needed to be recaptured and adjusted and was redeployed till the adequate expansion and occlusion of the NIGEL noted.
The CINTHYA image confirmed adequate expansion. The tug test was done that showed the device is anchored well and is not able to come out. The compression was 15% and 21% on the three sides. There was no significant leak noted on the Doppler via CINTHYA.
The device was deployed by unscrewing the Watchman device and releasing from the connecting wire. The wire was pulled back into the sheath and the sheath was pulled out of the LA.
Implanted device:
WATCHMAN FLX Pro � 27mm
Procedure End
CINTHYA study was done again that showed no epicardial accumulation that was unchanged from earlier. A repeated images showed no change in the pericardial space. No complications noted.
Following the completion of the deployment, catheters were removed. Protamine 40 mg was given at the end of the procedure and ACT was checked repeatedly. The sheath was removed and hemostasis achieved with Fig of 8 suture and manual compression
after acceptable ACT is achieved.
Left atrial Pressure:
Mean LA pressure was 19mmHg
Estimated Blood loss:
10 cc
Specimens Removed:
None.
Implants / Devices:
None
Urine output:
None
Packs / Drains/ Tubes:
None
Instrument / Sponge Count Correct:
Yes
Complications of the Procedure:
None
Condition of Patient at Time of Transfer:
Hemodynamically stable with no neurological or vascular compromise.
Summary:
Successful implantation of the left atrial occlusion device (WATCHMAN FLX Pro� 27mm)
Post procedure Plan for anticoagulation:
Continue Eliquis 5 mg BID for 3 months.
In 3 months, based on CINTHYA, will plan to discontinue Eliquis and start ASA 81 mg indefinitely.
[2025-04-01] MEDS: TYLENOL 650 MG PO (10:12)
[2025-04-01] MEDS: SUBLIMAZE 50 MCG IV (10:14)
[2025-04-01] MEDS: LASIX 40 MG IV (10:24)
--- NOTE | 2025-04-01 14:37 | W.DS.TRANS ---
DC Summary - Mirror Painter
-
Discharge Instructions:
Discharge Diagnosis/Procedures Atrial fibrillation post Watchman
Diet Low Cholesterol,2 Gram Sodium
Driving Restrictions No driving for 24 hours
Others Tests Follow up CINTHYA has been schedule for you at [facility] with Dr. Zhou
on 07/02/2025. You will receive instructions
from the office and a call the day prior with
arrival time.
Specialty Instructions Weigh Daily
Instructions:
Stand-Alone Forms: DC Instructions- Cath/EP Lab
Changes to Home Medications: No
Discharge Medications:
DC Medications w/original date entered in [facility]
Farxiga 10 mg PO DAILY 03/12/25
atorvastatin 20 mg tablet 20 mg PO DAILY 03/12/25
bumetanide 1 mg tablet 2 mg PO BID 03/12/25
carvedilol 25 mg tablet 25 mg BID 03/12/25
citalopram 20 mg tablet 20 mg DAILY 03/12/25
clonidine HCl 0.1 mg tablet 0.1 mg PO TID 03/12/25
multivitamin 1 tab PO DAILY 03/12/25
terazosin 10 mg tablet 10 mg PO BID 03/12/25
tirzepatide 15 mg/0.5 mL subcutaneous pen injector (Mounjaro) 15 mg SC QWEEK 03/12/25
apixaban 5 mg tablet (Eliquis) 5 mg PO BID #60 tabs 03/14/25
Home Medication Changes
Pending Results: No
--- NOTE | 2025-04-01 14:53 | ITS.CL.PN ---
[facility] Worker - Procedure Note
Procedure
Procedure Note:
WATCHMAN LEFT ATRIAL APPENDAGE OCCLUSION REPORT
Date of Procedure: 04/01/2025
Referring: Dr. Deangelo Jalloh MD
Indication: Atrial fibrillation with a high bleeding risk and high stroke risk
Operators: Chino Vilchis MD, PhD (interventional cardiology); Dr. Jake Yu MD (electrophysiology); Dr. Ariadne Murphy MD (cardiac imaging)
Anesthesia: general anesthesia provided by the anesthesia staff
PROCEDURE: left atrial appendage occlusion with a 27 mm Watchman FLX
ACCESS:
1. 14F right common femoral vein (closure: figure of eight stitch) - Ultrasound was utilized for vascular access. The vessel was visualized under ultrasound and noted to be patent. An image of the vessel was stored permanently in the patient's
medical record. Under direct ultrasound guidance, vascular access was obtained using a modified Seldinger technique and an 8 Lao sheath was placed.
HEMODYNAMIC DATA
LA 19 mmHg
PROCEDURE NARRATIVE:
The patient was intubated and sedated by anesthesiology and then prepped and draped in standard sterile fashion. A CINTHYA probe was placed by cardiology and imaging performed demonstrating no left atrial appendage thrombus and no pericardial effusion.
Under ultrasound guidance, the right femoral vein was accessed by Dr. Jake Yu with an 8F sheath placed. Heparin was administered to achieve ACT>300.
The 8F sheath was exchanged over a Ante Up RF wire for the Watchman double curve sheath which was advanced to the SVC. The Watchman sheath was then pulled back under fluoroscopic and echo guidance until an appropriate inferior and posterior position
on the septum was achieved. During brief RF application, the wire was advanced through the interatrial septum into the left atrium. The wire was placed in the left upper pulmonary vein as confirmed by fluoroscopy and CINTHYA. The dilator and sheath
easily tracked across the septum allowing placement of the sheath in the left atrium. Left atrial pressure was measured at 19 mmHg.
A 5F pigtail catheter was advanced through the sheath and placed in the left atrial appendage, and an appendage gram was performed demonstrating anatomy suitable for a 27 mm Watchman FLX device. The device was prepped on the back table, the pigtail
catheter removed, and the device delivered via the sheath to the left atrial appendage by Dr. Akira Vilchis. The device was deployed slowly under continuous fluoroscopic and CINTHYA visualization. After deployment, CINTHYA imaging was performed to assess
PASS criteria. The device demonstrated excellent positioning, anchor stability on tug test, appropriate sizing with 15-21% compression, and appropriate seal with no leak at 0, 45, 90, or 135 degrees. Given PASS criteria were met, the device was then
released.
The delivery system retracted back into the sheath and removed from the body. The sheath was retracted into the right atrium with CINTHYA demonstrating no significant R-L shunt or pericardial effusion. The sheath were removed and the venotomy closed
with [id number] knot. Protamine 40 mg was given. The patient was extubated and tolerated the procedure well.
CONCLUSIONS
1. transseptal puncture with CINTHYA guidance
2. successful deployment of a 27 mm Watchman FLX device under fluoroscopic and CINTHYA guidance
RECOMMENDATIONS:
1. anticoagulation with Eliquis 5 mg BID
2. repeat CINTHYA in 3 months
Copy to: Dr. Deangelo Jalloh MD (organ recovery coordinator); Sherrell Castillo NP (PCP)
Signed: Chino Vilchis MD, PhD
== END 2025-04-01 14:20 | disposition home or self-care (01) | DRG 273 ==
LOC: CATH-IN 05:58
PROVIDERS: Nurse Practitioner Adult Health; Student in an Organized Health Care Education/Training Program; ADMITTING PHYSICIAN Student in an Organized Health Care Education/Training Program; FAMILY PHYSICIAN Nurse Practitioner Adult Health
PROC: B246ZZ4 Ultrasonography of Right and Left Heart, Transesophageal (ICD-10-PCS; 2025-04-01)
PROC: 02L73DK Occlusion of Left Atrial Appendage with Intraluminal Device, Percutaneous Approach (ICD-10-PCS; 2025-04-01)
DX: I48.21 Permanent atrial fibrillation (principal); Z00.6 Encounter for examination for normal comparison and control in clinical research program; I50.23 Acute on chronic systolic (congestive) heart failure; Z68.41 Body mass index [BMI] 40.0-44.9, adult; I42.8 Other cardiomyopathies; I35.0 Nonrheumatic aortic (valve) stenosis; I25.10 Atherosclerotic heart disease of native coronary artery without angina pectoris; E11.9 Type 2 diabetes mellitus without complications; E66.01 Morbid (severe) obesity due to excess calories; R09.02 Hypoxemia; Z79.85 Long-term (current) use of injectable non-insulin antidiabetic drugs; Z79.84 Long term (current) use of oral hypoglycemic drugs; Z79.01 Long term (current) use of anticoagulants
CPT/HCPCS: 33340; 82962; 85347; 85610; 86850; 86900; 86901; 93005; 93355; C1894; Q9967